=== PATIENT | male | born 1995 | race African-American/Black ===

== ENCOUNTER → 2024-07-11 08:18 | Outpatient (CLI) | payer OTHER, SELFPAY ==
--- NOTE | 2024-07-11 08:22 | DI.RAD.S_ITS ---
PROCEDURE: FL BARIUM SWALLOW INDICATIONS: dysphagia COMPARISON: None. FINDINGS: Function: There is normal esophageal peristalsis. Very mild gastroesophageal reflux is noted during the study. There is normal transit of a calibrated barium tablet through the esophagus into the stomach. Morphology: Air-contrast images demonstrate normal mucosal morphology. Single contrast views show no esophageal strictures, extrinsic mass effects, or diverticula. Limited images of the stomach demonstrate normal appearance. IMPRESSION: Very mild gastroesophageal reflux. Otherwise unremarkable barium swallow study. Dictated by: Cornell Mclean M.D. on 07/11/2024 at 11:25 Approved by: Cornell Mclean M.D. on 07/11/2024 at 11:39
== END ==
PROVIDERS: Visit Provider Radiology Diagnostic Radiology
DX: R13.10 Dysphagia, unspecified (principal); K21.9 Gastro-esophageal reflux disease without esophagitis
CPT/HCPCS: 74220